=== PATIENT | female | born 1955 | race Caucasian/White ===

== ENCOUNTER 2018-08-12 16:20 | Inpatient (IN) | payer OTHER ==
--- NOTE | 2018-08-12 16:41 | Emergency Department Report ---
Chief Complaint: Abdominal Pain Stated Complaint: HYPERTENSION/ABD PAIN Time Seen by Provider: 08/12/18 16:37 - HPI History of Present Illness: This is a 63 y.o. female that presents with abdominal pain and high blood pressure. Symptoms started yesterday. PMH: DM & HTN Vomiting, diffuse abdominal pain - Exam Vital Signs: Vital Signs 08/12/18 16:37 Temperature 98.2 F Pulse Rate 101 H Respiratory 20 Rate Blood Pressure 149/82 O2 Sat by Pulse 97 Oximetry MSE screening note: Focused history and physical exam performed. Due to findings the following was ordered: Labs and CT of abdomen ED Disposition for MSE Condition: Stable Instructions: Abdominal Pain (ED)
[2018-08-12 17:22] LABS: Basophils # (Auto) 0.1 K/mm3 (0.0-0.1); Basophils % (Auto) 0.8 % (0.0-1.8); Hematocrit 38.9 % (30.3-42.9); Hemoglobin 12.5 gm/dl (10.1-14.3); Lymphocytes % (Auto) 8.8 % (13.4-35.0); Mean Corpuscular HGB Conc 32 % (30-34); Mean Corpuscular Volume 78 fl (79-97); Monocytes # (Auto) 0.4 K/mm3 (0.0-0.8); Monocytes % (Auto) 3.6 % (0.0-7.3); Platelet Count 399 K/mm3 (140-440); Red Blood Count 5.01 M/mm3 (3.65-5.03); Red Cell Distribution Width 16.4 % (13.2-15.2)
[2018-08-12 17:51] LABS: Albumin 4.8 g/dL (3.9-5); Calcium 9.9 mg/dL (8.4-10.2)
[2018-08-12 17:59] LABS: Bilirubin,Urine NEG (Negative); Blood,Urine SM (Negative); Color,Urine Straw (Yellow); Mucus,Urine FEW /HPF; Urobilinogen,Urine < 2.0 mg/dL (<2.0)
[2018-08-12] MEDS ORDERED: SUBLIMAZE IV ONE (20:13)
[2018-08-12] MEDS ORDERED: NACL 0.9% 1000 ML 1,000 ML IV ONE (20:13)
[2018-08-12] MEDS ORDERED: ZOFRAN IV ONE (20:13)
--- NOTE | 2018-08-12 20:19 | Emergency Department Report ---
HPI - General Chief Complaint: Abdominal Pain Time Seen by Provider: 08/12/18 16:37 - HPI HPI: Room 34 The patient 63-year-old female presenting with a chief complaint of abdominal pain. Patient states she's had intermittent diffuse abdominal pain since yesterday. Patient unable to eat and has had frequent nausea vomiting. Patient is able to pass flatus small amount of liquid stool. Patient denies history of fever. Patient gives her pain score of 5/10. Patient has had a history of small bowel instruction in the past. Patient had a CT scan performed as an outpatient this afternoon which was read as "findings consistent with high-grade small bowel obstruction at the junction between the proximal third to the middle third with dilated proximal segment with a distended stomach. Asymmetrically enlarged left adrenal gland probably hyperplasia. The pancreas. Normal gallbladder. Benign cyst in the lower pole of right kidney. Fibroid chanda cification of the fundus of the uterus." Images were not sent with the patient. Location: Abdomen Duration: Constant since yesterday Quality: Pain Severity: 5/10 Modifying factors: [see above] Context: [see above] Mode of transportation: [not driving] ED Past Medical Hx - Past Medical History Hx Hypertension: Yes Hx Diabetes: Yes - Surgical History Past Surgical History?: No Additional Surgical History: 1995 and 2000 had resection for bowel obstruction? - Family History Family history: no significant - Social History Smoking Status: Never Smoker Substance Use Type: None - Medications Home Medications: Home Medications Medication Instructions Recorded Confirmed Last Taken Type AtorvaSTATin 10 mg PO QHS 08/30/17 08/30/17 Unknown History Cyanocobalamin (Vitamin B-12) 1,000 mcg PO DAILY 08/30/17 08/30/17 08/29/17 History [Vitamin B12] Glimepiride [Amaryl] 4 mg PO BID 08/30/17 08/30/17 08/29/17 History Linagliptin [Tradjenta] 5 mg PO DAILY 08/30/17 08/30/17 08/29/17 History Losartan 100 mg PO DAILY 08/30/17 08/30/17 1 Day Ago History ~08/29/17 metFORMIN [Glucophage] 1,000 mg PO BID 08/30/17 08/30/17 08/29/17 History ED Review of Systems ROS: Stated complaint: HYPERTENSION/ABD PAIN Other details as noted in HPI Constitutional: denies: fever Eyes: denies: eye pain ENT: denies: throat pain Respiratory: no symptoms reported Cardiovascular: denies: chest pain Endocrine: no symptoms reported Gastrointestinal: abdominal pain, nausea, vomiting Genitourinary: denies: dysuria Musculoskeletal: denies: back pain Neurological: denies: headache Physical Exam - Physical Exam Vital Signs: Vital Signs 08/12/18 08/12/18 16:37 20:09 Temperature 98.2 F 98.2 F Pulse Rate 101 H 90 Respiratory 20 16 Rate Blood Pressure 149/82 Blood Pressure 134/71 [Left] O2 Sat by Pulse 97 98 Oximetry Physical Exam: GENERAL: The patient is well-developed well-nourished female lying on stretcher not appear to be in acute distress. [] HEENT: Normocephalic. Atraumatic. Extraocular motions are intact. Patient has moist mucous membranes. NECK: Supple. Trachea midline CHEST/LUNGS: Clear to auscultation. There is no respiratory distress noted. HEART/CARDIOVASCULAR: Regular. There is no tachycardia. There is no gallop rub or murmur. ABDOMEN: Abdomen is soft, with tenderness to palpation diffusely but greatest on the left lower and left upper quadrant. Patient has normal bowel sounds. There is no abdominal distention. SKIN: There is no rash. There is no edema. There is no diaphoresis. NEURO: The patient is awake, alert, and oriented. The patient is cooperative. The patient has normal speech MUSCULOSKELETAL: There is no evidence of acute injury. ED Course Vital Signs 08/12/18 08/12/18 16:37 20:09 Temperature 98.2 F 98.2 F Pulse Rate 101 H 90 Respiratory 20 16 Rate Blood Pressure 149/82 Blood Pressure 134/71 [Left] O2 Sat by Pulse 97 98 Oximetry - Consultations Consultation #1: 08/12/18 20:24 Surgery paged 08/12/18 20:[address] Patel-requests 2 view abdominal x-ray be performed in the morning. Will consult ED Medical Decision Making - Lab Data Result diagrams: 08/12/18 17:06 08/12/18 17:06 Laboratory Tests 08/12/18 08/12/18 08/12/18 17:06 17:06 17:20 WBC 11.4 H RBC 5.01 Hgb 12.5 Hct 38.9 MCV 78 L MCH 25 L MCHC 32 RDW 16.4 H Plt Count 399 Lymph % (Auto) 8.8 L [place] % (Auto) 3.6 Eos % (Auto) 0.0 Baso % (Auto) 0.8 Lymph # 1.0 L [place] # 0.4 Eos # 0.0 Baso # 0.1 Seg Neutrophils % 86.8 H Seg Neutrophils # 9.9 H Sodium 134 L Potassium 5.2 H Chloride 94.3 L Carbon Dioxide 23 Anion Gap 22 BUN 23 H Creatinine 1.3 H Estimated GFR 41 BUN/Creatinine Ratio 18 Glucose 220 H Calcium 9.9 Total Bilirubin 0.30 AST 14 ALT 13 Alkaline Phosphatase 97 Total Protein 8.0 Albumin 4.8 Albumin/Globulin Ratio 1.5 Lipase 180 H Urine Color Straw Urine Turbidity Clear Urine pH 5.0 Ur Specific [place] 1.050 H Urine Protein 100 mg/dl Urine Glucose (UA) >=500 Urine Ketones 20 Urine Blood Sm Urine Nitrite Neg Urine Bilirubin Neg Urine Urobilinogen < 2.0 Ur Leukocyte Esterase Neg Urine WBC (Auto) 1.0 Urine RBC (Auto) 5.0 U Epithel Cells (Auto) 2.0 Urine Mucus Few - Differential Diagnosis small bowel obstruction, pancreatitis Critical care attestation.: If time is entered above; I have spent that time in minutes in the direct care of this critically ill patient, excluding procedure time. ED Disposition Clinical Impression: Small bowel obstruction, Acute abdominal pain, Elevated lipase Disposition: OP ADMIT IP TO THIS HOSP Is pt being admited?: Yes Does the pt Need Aspirin: No Condition: Fair Instructions: Abdominal Pain (ED) Referrals: PATRICIA LUCERO MD [Primary Care Provider] - 3-5 Days Time of Disposition: 20:30 (hospitalist paged (Dr Mercado))
[2018-08-12] MEDS ORDERED: SODIUM CHLORIDE FLUSH SYRINGE 10 ML IV PRN (22:30)
[2018-08-12] MEDS ORDERED: ZOFRAN IV PRN (22:30)
[2018-08-12] MEDS ORDERED: TYLENOL PO PRN (22:30)
[2018-08-12] MEDS ORDERED: D50W (25GM) Syringe IV PRN (22:35)
--- NOTE | 2018-08-12 23:08 | History and Physical Report ---
History of Present Illness Date of examination: 08/12/18 Date of admission: 08/12/18 22:30 Chief complaint: Nausea with vomiting History of present illness: Patient is a 63 year old female with history of small bowel obstruction who presented to the ED on account of nausea with vomiting of 2 days duration times multiple episodes. She has associated generalized abdominal pain, diarrhea and subjective fever without chills. No dysuria or frequency. She denies chest pain, shortness of breath, palpitation, cough, sore throat, runny nose or congestion, leg swelling, orthopnea or PND. No headaches, lightheadedness, syncope or loss of consciousness. Patient had a CT scan of the abdomen/pelvis performed as an outpatient this afternoon which was read as findings consistent with high-grade small bowel obstruction at the junction between the proximal third to the middle third with dilated proximal segment with a distended stomach and asymmetrically enlarged left adrenal gland probably hyperplasia. The pancreas and gallbladder were normal with benign cyst in the lower pole of right kidney and fibroid calcification of the fundus of the uterus. Of note, patient did not come with the disk. Past History Past Medical History: diabetes, hypertension, hyperlipidemia, other (SBO) Past Surgical History: bowel surgery, Other (stone removal) Social history: no significant social history (she denies tobacco, alcohol or illicit drug use) Family history: other (reviewed and noncontributory) Medications and Allergies Allergies Allergy/AdvReac Type Severity Reaction Status Date / Time No Known Allergies Allergy Verified 08/12/18 16:23 Home Medications Medication Instructions Recorded Confirmed Last Taken Type AtorvaSTATin 10 mg PO QHS 08/30/17 08/30/17 Unknown History Cyanocobalamin (Vitamin B-12) 1,000 mcg PO DAILY 08/30/17 08/30/17 08/29/17 History [Vitamin B12] Glimepiride [Amaryl] 4 mg PO BID 08/30/17 08/30/17 08/29/17 History Linagliptin [Tradjenta] 5 mg PO DAILY 08/30/17 08/30/17 08/29/17 History Losartan 100 mg PO DAILY 08/30/17 08/30/17 1 Day Ago History ~08/29/17 metFORMIN [Glucophage] 1,000 mg PO BID 08/30/17 08/30/17 08/29/17 History Active Meds: Active Medications Acetaminophen (Tylenol) 650 mg PO Q4H PRN PRN Reason: Pain MILD(1-3)/Fever >100.5/GUPTA Dextrose (D50w (25gm) Syringe) 50 ml IV PRN PRN PRN Reason: Hypoglycemia Enoxaparin Sodium (Lovenox) 40 mg SUB-Q QDAY NNAMDI Famotidine (Pepcid) 10 mg IV BID [facility] Sodium Chloride (Nacl 0.9% 1000 Ml) 1,000 mls @ 125 mls/hr IV DIRECT NNAMDI Insulin Human Lispro (Humalog) 0 unit SUB-Q ACHS NNAMDI; Protocol Morphine Sulfate (Morphine) 2 mg IV Q4H PRN PRN Reason: Pain, Moderate (4-6) Ondansetron HCl (Zofran) 4 mg IV Q8H PRN PRN Reason: Nausea And Vomiting Sodium Chloride (Sodium Chloride Flush Syringe 10 Ml) 10 ml IV BID [facility] Sodium Chloride (Sodium Chloride Flush Syringe 10 Ml) 10 ml IV PRN PRN PRN Reason: LINE FLUSH Review of Systems All systems: negative (Except as documented in the HPI, all other systems were reviewed and negative) Exam - Constitutional Vitals: Temp Pulse Resp BP Pulse Ox 98.2 F 90 16 134/71 98 08/12/18 20:09 08/12/18 20:09 08/12/18 20:09 08/12/18 20:09 08/12/18 20:09 General appearance: Present: no acute distress, well-nourished - EENT Eyes: Present: PERRL, EOM intact ENT: hearing intact, clear oral mucosa, other (NG tube in place) - Neck Neck: Present: supple, normal ROM - Respiratory Respiratory effort: normal Respiratory: bilateral: CTA - Cardiovascular Rhythm: regular Heart Sounds: Present: S1 & S2. Absent: rub, click - Extremities Extremities: No edema Peripheral Pulses: within normal limits - Abdominal General gastrointestinal: Present: soft, tender (mild generalized tenderness), distended (mildly), absent bowel sounds Female genitourinary: Present: deferred - Integumentary Integumentary: Present: clear, warm, dry - Musculoskeletal Musculoskeletal: gait normal, strength equal bilaterally - Psychiatric Psychiatric: appropriate mood/affect, intact judgment & insight - Neurologic Neurologic: CNII-XII intact, moves all extremities Results - Labs CBC & Chem 7: 08/12/18 17:06 08/12/18 17:06 Labs: Laboratory Last Values WBC 11.4 K/mm3 (4.5-11.0) H 08/12/18 17:06 RBC 5.01 M/mm3 (3.65-5.03) 08/12/18 17:06 Hgb 12.5 gm/dl (10.1-14.3) 08/12/18 17:06 Hct 38.9 % (30.3-42.9) 08/12/18 17:06 MCV 78 fl (79-97) L 08/12/18 17:06 MCH 25 pg (28-32) L 08/12/18 17:06 MCHC 32 % (30-34) 08/12/18 17:06 RDW 16.4 % (13.2-15.2) H 08/12/18 17:06 Plt Count 399 K/mm3 (140-440) 08/12/18 17:06 Lymph % (Auto) 8.8 % (13.4-35.0) L 08/12/18 17:06 [place] % (Auto) 3.6 % (0.0-7.3) 08/12/18 17:06 Eos % (Auto) 0.0 % (0.0-4.3) 08/12/18 17:06 Baso % (Auto) 0.8 % (0.0-1.8) 08/12/18 17:06 Lymph # 1.0 K/mm3 (1.2-5.4) L 08/12/18 17:06 [place] # 0.4 K/mm3 (0.0-0.8) 08/12/18 17:06 Eos # 0.0 K/mm3 (0.0-0.4) 08/12/18 17:06 Baso # 0.1 K/mm3 (0.0-0.1) 08/12/18 17:06 Seg Neutrophils % 86.8 % (40.0-70.0) H 08/12/18 17:06 Seg Neutrophils # 9.9 K/mm3 (1.8-7.7) H 08/12/18 17:06 Sodium 134 mmol/L (137-145) L 08/12/18 17:06 Potassium 5.2 mmol/L (3.6-5.0) H 08/12/18 17:06 Chloride 94.3 mmol/L (98-107) L 08/12/18 17:06 Carbon Dioxide 23 mmol/L (22-30) 08/12/18 17:06 Anion Gap 22 mmol/L 08/12/18 17:06 BUN 23 mg/dL (7-17) H 08/12/18 17:06 Creatinine 1.3 mg/dL (0.7-1.2) H 08/12/18 17:06 Estimated GFR 41 ml/min 08/12/18 17:06 BUN/Creatinine Ratio 18 % 08/12/18 17:06 Glucose 220 mg/dL (65-100) H 08/12/18 17:06 Calcium 9.9 mg/dL (8.4-10.2) 08/12/18 17:06 Total Bilirubin 0.30 mg/dL (0.1-1.2) 08/12/18 17:06 AST 14 units/L (5-40) 08/12/18 17:06 ALT 13 units/L (7-56) 08/12/18 17:06 Alkaline Phosphatase 97 units/L (35-129) 08/12/18 17:06 Total Protein 8.0 g/dL (6.3-8.2) 08/12/18 17:06 Albumin 4.8 g/dL (3.9-5) 08/12/18 17:06 Albumin/Globulin Ratio 1.5 % 08/12/18 17:06 Lipase 180 units/L (13-60) H 08/12/18 17:06 Urine Color Straw (Yellow) 08/12/18 17:20 Urine Turbidity Clear (Clear) 08/12/18 17:20 Urine pH 5.0 (5.0-7.0) 08/12/18 17:20 Ur Specific [place] 1.050 (1.003-1.030) H 08/12/18 17:20 Urine Protein 100 mg/dl mg/dL (Negative) 08/12/18 17:20 Urine Glucose (UA) >=500 mg/dL (Negative) 08/12/18 17:20 Urine Ketones 20 mg/dL (Negative) 08/12/18 17:20 Urine Blood Sm (Negative) 08/12/18 17:20 Urine Nitrite Neg (Negative) 08/12/18 17:20 Urine Bilirubin Neg (Negative) 08/12/18 17:20 Urine Urobilinogen < 2.0 mg/dL (<2.0) 08/12/18 17:20 Ur Leukocyte Esterase Neg (Negative) 08/12/18 17:20 Urine WBC (Auto) 1.0 /HPF (0.0-6.0) 08/12/18 17:20 Urine RBC (Auto) 5.0 /HPF (0.0-6.0) 08/12/18 17:20 U Epithel Cells (Auto) 2.0 /HPF (0-13.0) 08/12/18 17:20 Urine Mucus Few /HPF 08/12/18 17:20 Assessment and Plan Assessment and plan: SBO -NG tube in place for bowel decompression -Surgery consulted in the ED -Abdominal series in a.m. TRACIE, probably prerenal azotemia -IV fluid, will monitor creatinine level Mild hyperkalemia -On IV fluid, will monitor potassium level DM2 with hyperglycemia -On SSI and IV fluid Leukocytosis -Probably reactive, will monitor WBC level Elevated lipase -Likely due to the SBO -No evidence of acute pancreatitis per imaging HTN -Controlled DVT prophylaxis with Lovenox Disposition: For discharge when medically stable Time spent: 38 minutes
--- NOTE | 2018-08-12 23:18 | XRay Report ---
PROCEDURE: XR ABDOMEN 1V AP TECHNIQUE: Abdominal radiograph, single view. HISTORY: NG tube placement COMPARISONS: None . FINDINGS: Bowel gas pattern: Nonobstructive . Masses or calcifications: None . Bony structures: No significant abnormality . Other: The nasogastric tube ends in the distal stomach . IMPRESSION: The nasogastric tube ends in the distal stomach. This document is electronically signed by Marleny Ramos DO., August 12 2018 11:17:19 PM ET
[2018-08-13] MEDS: NACL 0.9% 1000 ML 1,000 ML IV SCH ×4 (00:13→23:49)
[2018-08-13 04:44] LABS: Basophils % (Auto) 0.3 % (0.0-1.8); Eosinophils % (Auto) 0.3 % (0.0-4.3); Hematocrit 33.2 % (30.3-42.9); Lymphocytes # (Auto) 1.3 K/mm3 (1.2-5.4); Lymphocytes % (Auto) 16.4 % (13.4-35.0); Mean Corpuscular HGB Conc 33 % (30-34); Mean Corpuscular Volume 77 fl (79-97); Monocytes # (Auto) 0.7 K/mm3 (0.0-0.8); Monocytes % (Auto) 8.6 % (0.0-7.3); Platelet Count 330 K/mm3 (140-440); Red Blood Count 4.32 M/mm3 (3.65-5.03); Red Cell Distribution Width 16.5 % (13.2-15.2)
[2018-08-13 05:04] LABS: BUN/Creatinine Ratio 24; Blood Urea Nitrogen 22 mg/dL (7-17); Calcium 8.5 mg/dL (8.4-10.2); Hemolysis Index 7
[2018-08-13] MEDS: HumaLOG SUB-Q SCH ×4 (07:00→22:27)
[2018-08-13] MEDS: SODIUM CHLORIDE FLUSH SYRINGE 10 ML IV SCH ×2 (09:19→22:25)
[2018-08-13] MEDS: PEPCID IV SCH ×2 (09:19→22:22)
[2018-08-13] MEDS: LOVENOX SUB-Q SCH (09:19)
--- NOTE | 2018-08-13 14:25 | Consultation ---
History of Present Illness Consult date: 08/13/18 Reason for consult: abdominal pain Requesting physician: SOLO RAMIREZ Chief complaint: abdominal pain - History of present illness History of present illness: 63yo F with a two day history of abdominal pain, N/V. surgical history is significant for 2 laparotomies. She reports the 1st one in 1989 was for intestine that had gone bad. The 2nd one was for a blockage. She is feeling better now. She has minimal pain on the left side. Nothing on the right. She is passed gas. No bowel movement yet. She is wanting something to eat or drink. Past History Past Medical History: diabetes, hypertension, hyperlipidemia, other (SBO) Past Surgical History: bowel surgery (2 laparotomies. ), Other (stone removal) Social history: no significant social history (she denies tobacco, alcohol or illicit drug use) Family history: other (reviewed and noncontributory) Medications and Allergies Allergies Allergy/AdvReac Type Severity Reaction Status Date / Time No Known Allergies Allergy Verified 08/12/18 16:23 Home Medications Medication Instructions Recorded Confirmed Last Taken Type AtorvaSTATin 10 mg PO QHS 08/30/17 08/13/18 08/11/18 History Cyanocobalamin (Vitamin B-12) 1,000 mcg PO DAILY 08/30/17 08/13/18 08/29/17 History [Vitamin B12] Glimepiride [Amaryl] 4 mg PO BID 08/30/17 08/13/18 08/11/18 History Linagliptin [Tradjenta] 5 mg PO DAILY 08/30/17 08/13/18 08/12/18 History Losartan 100 mg PO DAILY 08/30/17 08/13/18 08/11/18 History metFORMIN [Glucophage] 1,000 mg PO BID 08/30/17 08/13/18 08/11/18 History Active Meds: Active Medications Acetaminophen (Tylenol) 650 mg PO Q4H PRN PRN Reason: Pain MILD(1-3)/Fever >100.5/GUPTA Dextrose (D50w (25gm) Syringe) 50 ml IV PRN PRN PRN Reason: Hypoglycemia Enoxaparin Sodium (Lovenox) 40 mg SUB-Q QDAY NNAMDI Last Admin: 08/13/18 09:19 Dose: 40 mg Documented by: Famotidine (Pepcid) 10 mg IV BID [facility] Last Admin: 08/13/18 09:19 Dose: 10 mg Documented by: Sodium Chloride (Nacl 0.9% 1000 Ml) 1,000 mls @ 125 mls/hr IV DIRECT [facility] Last Admin: 08/13/18 08:03 Dose: 125 mls/hr Documented by: Insulin Human Lispro (Humalog) 0 unit SUB-Q ACHS [facility]; Protocol Last Admin: 08/13/18 11:59 Dose: Not Given Documented by: Morphine Sulfate (Morphine) 2 mg IV Q4H PRN PRN Reason: Pain, Moderate (4-6) Ondansetron HCl (Zofran) 4 mg IV Q8H PRN PRN Reason: Nausea And Vomiting Sodium Chloride (Sodium Chloride Flush Syringe 10 Ml) 10 ml IV BID [facility] Last Admin: 08/13/18 09:19 Dose: 10 ml Documented by: Sodium Chloride (Sodium Chloride Flush Syringe 10 Ml) 10 ml IV PRN PRN PRN Reason: LINE FLUSH Review of Systems - Constitutional no fever, no chills, no chronic pain - Cardiovascular no chest pain, no shortness of breath - Respiratory no cough - Gastrointestinal abdominal pain, nausea, vomiting, change in bowel habits, no diarrhea, no constipation, no hematemesis, no coffee ground emesis, no BRBPR, no melena, no hematochezia - Genitourinary Genitourinary: no dysuria - Muskuloskeletal no low back pain - Integumentary no rash, no pruritis, no redness, no wounds Exam Vital Signs Temp Pulse Resp BP Pulse Ox 98.2 F 101 H 20 149/82 97 08/12/18 16:37 08/12/18 16:37 08/12/18 16:37 08/12/18 16:37 08/12/18 16:37 - General physical appearance Positive: no distress, no pain, other (looks well). Negative: cathetic, chronically ill - Eyes Positive: normal occular movement - ENT Positive: other (NGT - fluid in tubing is thin, and slightly green) - Respiratory Positive: normal expansion, normal respiratory effort, clear to auscultation - Cardiovascular Rhythm: regular - Abdomen Abdomen: Present: soft, tender (minimal on the left side), bowel sounds hypoactive (nothing), distended (minimal), surgical scars (well healed lower midline scars). Absent: guarding, rigid - Integumentary no rash, no growths, no abnormal pigmentation - Neurologic Neurologic: alert and oriented to time, place and person, motor strength and sensation are grossly intact - Psychiatric Psychiatric: appropriate mood/affect, intact judgment & insight Results - Labs 08/13/18 04:14 08/13/18 04:14 Abnormal lab results 08/12/18 08/12/18 08/12/18 Range/Units 17:06 17:06 17:20 WBC 11.4 H (4.5-11.0) K/mm3 MCV 78 L (79-97) fl MCH 25 L (28-32) pg RDW 16.4 H (13.2-15.2) % Lymph % (Auto) 8.8 L (13.4-35.0) % [place] % (Auto) (0.0-7.3) % Lymph # 1.0 L (1.2-5.4) K/mm3 Seg Neutrophils % 86.8 H (40.0-70.0) % Seg Neutrophils # 9.9 H (1.8-7.7) K/mm3 Sodium 134 L (137-145) mmol/L Potassium 5.2 H (3.6-5.0) mmol/L Chloride 94.3 L (98-107) mmol/L BUN 23 H (7-17) mg/dL Creatinine 1.3 H (0.7-1.2) mg/dL Glucose 220 H (65-100) mg/dL POC Glucose (70-105) Lipase 180 H (13-60) units/L Ur Specific [place] 1.050 H (1.003-1.030) 08/13/18 08/13/18 08/13/18 Range/Units 00:09 04:14 04:14 WBC (4.5-11.0) K/mm3 MCV 77 L (79-97) fl MCH 26 L (28-32) pg RDW 16.5 H (13.2-15.2) % Lymph % (Auto) (13.4-35.0) % [place] % (Auto) 8.6 H (0.0-7.3) % Lymph # (1.2-5.4) K/mm3 Seg Neutrophils % 74.4 H (40.0-70.0) % Seg Neutrophils # (1.8-7.7) K/mm3 Sodium (137-145) mmol/L Potassium (3.6-5.0) mmol/L Chloride (98-107) mmol/L BUN 22 H (7-17) mg/dL Creatinine (0.7-1.2) mg/dL Glucose 154 H (65-100) mg/dL POC Glucose 154 H (70-105) Lipase (13-60) units/L Ur Specific [place] (1.003-1.030) 08/13/18 Range/Units 05:58 WBC (4.5-11.0) K/mm3 MCV (79-97) fl MCH (28-32) pg RDW (13.2-15.2) % Lymph % (Auto) (13.4-35.0) % [place] % (Auto) (0.0-7.3) % Lymph # (1.2-5.4) K/mm3 Seg Neutrophils % (40.0-70.0) % Seg Neutrophils # (1.8-7.7) K/mm3 Sodium (137-145) mmol/L Potassium (3.6-5.0) mmol/L Chloride (98-107) mmol/L BUN (7-17) mg/dL Creatinine (0.7-1.2) mg/dL Glucose (65-100) mg/dL POC Glucose 161 H (70-105) Lipase (13-60) units/L Ur Specific [place] (1.003-1.030) Diabetes panel 08/12/18 08/13/18 Range/Units 17:06 04:14 Sodium 134 L 137 (137-145) mmol/L Potassium 5.2 H 4.1 D (3.6-5.0) mmol/L Chloride 94.3 L 100.6 (98-107) mmol/L Carbon Dioxide 23 24 (22-30) mmol/L BUN 23 H 22 H (7-17) mg/dL Creatinine 1.3 H 0.9 (0.7-1.2) mg/dL Glucose 220 H 154 H (65-100) mg/dL Calcium 9.9 8.5 (8.4-10.2) mg/dL AST 14 (5-40) units/L ALT 13 (7-56) units/L Alkaline Phosphatase 97 (35-129) units/L Total Protein 8.0 (6.3-8.2) g/dL Albumin 4.8 (3.9-5) g/dL Calcium panel 08/12/18 08/13/18 Range/Units 17:06 04:14 Calcium 9.9 8.5 (8.4-10.2) mg/dL Albumin 4.8 (3.9-5) g/dL Pituitary panel 08/12/18 08/13/18 Range/Units 17:06 04:14 Sodium 134 L 137 (137-145) mmol/L Potassium 5.2 H 4.1 D (3.6-5.0) mmol/L Chloride 94.3 L 100.6 (98-107) mmol/L Carbon Dioxide 23 24 (22-30) mmol/L BUN 23 H 22 H (7-17) mg/dL Creatinine 1.3 H 0.9 (0.7-1.2) mg/dL Glucose 220 H 154 H (65-100) mg/dL Calcium 9.9 8.5 (8.4-10.2) mg/dL Adrenal panel 08/12/18 08/13/18 Range/Units 17:06 04:14 Sodium 134 L 137 (137-145) mmol/L Potassium 5.2 H 4.1 D (3.6-5.0) mmol/L Chloride 94.3 L 100.6 (98-107) mmol/L Carbon Dioxide 23 24 (22-30) mmol/L BUN 23 H 22 H (7-17) mg/dL Creatinine 1.3 H 0.9 (0.7-1.2) mg/dL Glucose 220 H 154 H (65-100) mg/dL Calcium 9.9 8.5 (8.4-10.2) mg/dL Total Bilirubin 0.30 (0.1-1.2) mg/dL AST 14 (5-40) units/L ALT 13 (7-56) units/L Alkaline Phosphatase 97 (35-129) units/L Total Protein 8.0 (6.3-8.2) g/dL Albumin 4.8 (3.9-5) g/dL - Imaging Abdominal x-ray: report reviewed, image reviewed CT scan - abdomen: report reviewed, image reviewed CT scan - pelvis: report reviewed, image reviewed Assessment and Plan - Patient Problems (1) Small bowel obstruction Current Visit: Yes Status: Acute Plan to address problem: Pt stable. Clinically it looks as though she may have already started to resolve this process. I recommended that we keep the NGT one more day. I will reassess tomorrow. If she is continuing to pass gas and hopefully have a bowel movement, then I will begin a diet. I have encouraged her to walk. Continue with resuscitation. I will follow along. Please call with any questions. Time=30min
--- NOTE | 2018-08-13 14:45 | Progress Note ---
Assessment and Plan Patient is a 63 year old female with history of small bowel obstruction who presented to the ED on account of nausea with vomiting of 2 days duration times multiple episodes. She has associated generalized abdominal pain, diarrhea and subjective fever without chills. No dysuria or frequency. She denies chest pain, shortness of breath, palpitation, cough, sore throat, runny nose or congestion, leg swelling, orthopnea or PND. No headaches, lightheadedness, syncope or loss of consciousness. Patient had a CT scan of the abdomen/pelvis performed as an outpatient this afternoon which was read as findings consistent with high-grade small bowel obstruction at the junction between the proximal third to the middle third with dilated proximal segment with a distended stomach and asymmetrically enlarged left adrenal gland probably hyperplasia. The pancreas and gallbladder were normal with benign cyst in the lower pole of right kidney and fibroid calcification of the fundus of the uterus. SBO -NG tube in place for bowel decompression -Surgery consulted in the ED -Abdominal series in a.m. TRACIE, prerenal azotemia - resolved -IV fluid, will monitor creatinine level Mild hyperkalemia - resolved -On IV fluid, will monitor potassium level DM2 with hyperglycemia -On SSI and IV fluid Leukocytosis -Probably reactive, will monitor WBC level Elevated lipase -Likely due to the SBO -No evidence of acute pancreatitis per imaging HTN -Controlled DVT prophylaxis with Lovenox Disposition: For discharge when medically stable Time spent: 38 minutes Subjective Date of service: 08/13/18 Principal diagnosis: small bowel obstruction from adhesions, UTI, T2DM Interval history: Patient's on NG tube seen and examined. Said she has pass some fltuas but no bowel movement yet. Objective - Exam Narrative Exam: Constitutional: NG tube in place Well-nourished well-developed. In no distress Head: Normocephalic atraumatic Eyes: Pupils are equal round and reactive to light Nose: No enlarged turbinates, no septal deviation. Mouth: Moist mucous membranes. Neck: Supple no thyromegaly. No bruit. No JVD Heart: Regular rate and rhythm, S1-S2 normal. No rubs murmurs or gallop Lungs: Clear to auscultation bilaterally. no rales or rhonchi Abdomen: Soft, nontender. Bowel sound are present. Extremities: No edema, no cyanosis, no clubbing. Neuro: Alert oriented Oriented x3. No focal sensory or motor deficit. Skin: No rashes or hyperpigmented spots Musculoskeletal system: No joint pain or swelling Hematological: No petechia or subcutanous hemorrhages. Immunological: No multiple septic spots on the skin Lymphatic: No generalized lymphadenopathy Psychiatry: Euthymic. Calm. - Constitutional Vitals: Vital Signs - 12hr 08/13/18 08/13/18 08/13/18 04:05 07:10 11:57 Temperature 98.4 F 98.8 F 98.4 F Pulse Rate 86 72 76 Respiratory 17 18 18 Rate Blood Pressure 131/66 Blood Pressure 138/69 130/68 [Left] O2 Sat by Pulse 98 96 97 Oximetry - Labs CBC & Chem 7: 08/13/18 04:14 08/13/18 04:14 Labs: Abnormal lab results 08/12/18 08/12/18 08/12/18 Range/Units 17:06 17:06 17:20 WBC 11.4 H (4.5-11.0) K/mm3 MCV 78 L (79-97) fl MCH 25 L (28-32) pg RDW 16.4 H (13.2-15.2) % Lymph % (Auto) 8.8 L (13.4-35.0) % [place] % (Auto) (0.0-7.3) % Lymph # 1.0 L (1.2-5.4) K/mm3 Seg Neutrophils % 86.8 H (40.0-70.0) % Seg Neutrophils # 9.9 H (1.8-7.7) K/mm3 Sodium 134 L (137-145) mmol/L Potassium 5.2 H (3.6-5.0) mmol/L Chloride 94.3 L (98-107) mmol/L BUN 23 H (7-17) mg/dL Creatinine 1.3 H (0.7-1.2) mg/dL Glucose 220 H (65-100) mg/dL POC Glucose (70-105) Lipase 180 H (13-60) units/L Ur Specific [place] 1.050 H (1.003-1.030) 08/13/18 08/13/18 08/13/18 Range/Units 00:09 04:14 04:14 WBC (4.5-11.0) K/mm3 MCV 77 L (79-97) fl MCH 26 L (28-32) pg RDW 16.5 H (13.2-15.2) % Lymph % (Auto) (13.4-35.0) % [place] % (Auto) 8.6 H (0.0-7.3) % Lymph # (1.2-5.4) K/mm3 Seg Neutrophils % 74.4 H (40.0-70.0) % Seg Neutrophils # (1.8-7.7) K/mm3 Sodium (137-145) mmol/L Potassium (3.6-5.0) mmol/L Chloride (98-107) mmol/L BUN 22 H (7-17) mg/dL Creatinine (0.7-1.2) mg/dL Glucose 154 H (65-100) mg/dL POC Glucose 154 H (70-105) Lipase (13-60) units/L Ur Specific [place] (1.003-1.030) 08/13/18 Range/Units 05:58 WBC (4.5-11.0) K/mm3 MCV (79-97) fl MCH (28-32) pg RDW (13.2-15.2) % Lymph % (Auto) (13.4-35.0) % [place] % (Auto) (0.0-7.3) % Lymph # (1.2-5.4) K/mm3 Seg Neutrophils % (40.0-70.0) % Seg Neutrophils # (1.8-7.7) K/mm3 Sodium (137-145) mmol/L Potassium (3.6-5.0) mmol/L Chloride (98-107) mmol/L BUN (7-17) mg/dL Creatinine (0.7-1.2) mg/dL Glucose (65-100) mg/dL POC Glucose 161 H (70-105) Lipase (13-60) units/L Ur Specific [place] (1.003-1.030)
[2018-08-13] MEDS: MORPHINE IV PRN ×2 (15:48→22:23)
--- NOTE | 2018-08-13 16:47 | XRay Report ---
XR ABDOMEN 2V CLINICAL INDICATION: Female, 63 years of age. small bowel obstruction COMPARISON: August 12, 2018. FINDINGS: AP views of the abdomen obtained. Distal tip of NG tube projects over the distal stomach si milar to prior study. Persistent retained barium within the colon. Paucity of small bowel gas which c ould reflect fluid-filled decompressed bowel loops. No significant change from prior study. No gross pathological calcifications. IMPRESSION: 1. Distal to the NG tube projects over the distal stomach. 2. Nonspecific bowel gas pattern. This document is electronically signed by Ronel Lee DO., August 13 2018 04:45:13 PM ET
[2018-08-14] MEDS: HumaLOG SUB-Q SCH ×4 (07:00→22:42)
[2018-08-14] MEDS: SODIUM CHLORIDE FLUSH SYRINGE 10 ML IV SCH ×2 (10:39→22:30)
[2018-08-14] MEDS: LOVENOX SUB-Q SCH (10:40)
[2018-08-14] MEDS: PEPCID IV SCH ×2 (10:41→22:30)
--- NOTE | 2018-08-14 12:01 | Progress Note ---
Assessment and Plan - Patient Problems (1) Small bowel obstruction Current Visit: Yes Status: Acute Plan to address problem: Pt stable. Patient looks and feels better. Abdomen is benign. Will clamp NG tube and try clear liquids. If tolerated, will advance diet tomorrow and remove NG tube. Will check abdominal x-ray in the morning to reassess the bowel pattern. I will follow along. Please call with any questions. Time=10min Subjective Date of service: 08/14/18 Patient Reports: Positive: feels better, pain is less, flatus, no bowel movement. Negative: nausea, vomiting Objective Vital Signs - 12hr 08/14/18 08/14/18 08/14/18 04:57 06:16 07:32 Temperature 97.8 F 98.1 F Pulse Rate 68 82 74 Respiratory 18 18 Rate Blood Pressure 117/72 137/63 [Left] O2 Sat by Pulse 87 98 99 Oximetry 08/14/18 11:35 Temperature 98.4 F Pulse Rate 82 Respiratory 18 Rate Blood Pressure 131/62 [Left] O2 Sat by Pulse 97 Oximetry - General physical appearance no distress, no pain - Eyes normal occular movement - Respiratory normal expansion, normal respiratory effort - Abdomen soft, not tender, bowel sounds hypoactive, not distended, not guarding, not rigid, other (NGT with clear output) - Integumentary no rash, no growths, no abnormal pigmentation - Psychiatric oriented to time, oriented to person, oriented to place, speech is normal, memory intact - Labs 08/13/18 04:14 08/13/18 04:14
[2018-08-14] MEDS: NACL 0.9% 1000 ML 1,000 ML IV SCH (17:21)
--- NOTE | 2018-08-14 17:34 | Progress Note ---
Assessment and Plan Patient is a 63 year old female with history of small bowel obstruction who presented to the ED on account of nausea with vomiting of 2 days duration times multiple episodes. She has associated generalized abdominal pain, diarrhea and subjective fever without chills. No dysuria or frequency. She denies chest pain, shortness of breath, palpitation, cough, sore throat, runny nose or congestion, leg swelling, orthopnea or PND. No headaches, lightheadedness, syncope or loss of consciousness. Patient had a CT scan of the abdomen/pelvis performed as an outpatient this afternoon which was read as findings consistent with high-grade small bowel obstruction at the junction between the proximal third to the middle third with dilated proximal segment with a distended stomach and asymmetrically enlarged left adrenal gland probably hyperplasia. The pancreas and gallbladder were normal with benign cyst in the lower pole of right kidney and fibroid calcification of the fundus of the uterus. SBO -NG tube in place for bowel decompression. Clamped today adn commenced on sip per surgeon TRACIE, prerenal azotemia - resolved -IV fluid, will monitor creatinine level Mild hyperkalemia - resolved -On IV fluid, will monitor potassium level DM2 with hyperglycemia -On SSI and IV fluid Leukocytosis - resolved -Probably reactive, will monitor WBC level Elevated lipase -Likely due to the SBO -No evidence of acute pancreatitis per imaging HTN -Controlled DVT prophylaxis with Lovenox Disposition: For discharge when medically stable Time spent: 35 minutes Subjective Date of service: 08/14/18 Principal diagnosis: small bowel obstruction from adhesions, UTI, T2DM Interval history: Patient's on NG tube seen and examined. Said she is still passing some flatus but no bowel movement yet. Objective - Exam Narrative Exam: Constitutional: NG tube in place. Well-nourished well-developed. In no distress Head: Normocephalic atraumatic Eyes: Pupils are equal round and reactive to light Nose: No enlarged turbinates, no septal deviation. Mouth: Moist mucous membranes. Neck: Supple no thyromegaly. No bruit. No JVD Heart: Regular rate and rhythm, S1-S2 normal. No rubs murmurs or gallop Lungs: Clear to auscultation bilaterally. no rales or rhonchi Abdomen: Soft, nontender. Bowel sound are present. Extremities: No edema, no cyanosis, no clubbing. Neuro: Alert oriented Oriented x3. No focal sensory or motor deficit. Skin: No rashes or hyperpigmented spots Musculoskeletal system: No joint pain or swelling Hematological: No petechia or subcutanous hemorrhages. Immunological: No multiple septic spots on the skin Lymphatic: No generalized lymphadenopathy Psychiatry: Euthymic. Calm. - Constitutional Vitals: Vital Signs - 12hr 08/14/18 08/14/18 08/14/18 06:16 07:32 11:35 Temperature 97.8 F 98.1 F 98.4 F Pulse Rate 82 74 82 Respiratory 18 18 18 Rate Blood Pressure 117/72 137/63 131/62 [Left] O2 Sat by Pulse 98 99 97 Oximetry 08/14/18 16:25 Temperature 98.2 F Pulse Rate 74 Respiratory 18 Rate Blood Pressure 147/75 [Left] O2 Sat by Pulse 98 Oximetry - Labs CBC & Chem 7: 08/13/18 04:14 08/13/18 04:14 Labs: Abnormal lab results 08/12/18 08/14/18 08/14/18 Range/Units 23:18 06:07 11:08 POC Glucose 170 H 68 L 66 L (70-105) 08/14/18 Range/Units 16:40 POC Glucose 148 H (70-105)
[2018-08-14] MEDS ORDERED: D50W (25GM) Syringe IV PRN (17:36)
[2018-08-14] MEDS ORDERED: D5NS0.3 1,000 ML IV SCH (18:00)
[2018-08-15] MEDS: HumaLOG SUB-Q SCH ×9 (04:36→22:27)
[2018-08-15 04:49] LABS: Basophils # (Auto) 0.1 K/mm3 (0.0-0.1); Basophils % (Auto) 0.8 % (0.0-1.8); Eosinophils # (Auto) 0.1 K/mm3 (0.0-0.4); Eosinophils % (Auto) 0.9 % (0.0-4.3); Hematocrit 31.4 % (30.3-42.9); Hemoglobin 10.2 gm/dl (10.1-14.3); Lymphocytes # (Auto) 1.2 K/mm3 (1.2-5.4); Lymphocytes % (Auto) 17.6 % (13.4-35.0); Mean Corpuscular HGB Conc 33 % (30-34); Mean Corpuscular Volume 78 fl (79-97); Monocytes # (Auto) 0.6 K/mm3 (0.0-0.8); Monocytes % (Auto) 8.4 % (0.0-7.3); Platelet Count 257 K/mm3 (140-440); Red Blood Count 4.03 M/mm3 (3.65-5.03); Red Cell Distribution Width 16.3 % (13.2-15.2)
[2018-08-15 05:06] LABS: Alanine Aminotransferase 8 units/L (7-56); Albumin 3.4 g/dL (3.9-5); BUN/Creatinine Ratio 13; Blood Urea Nitrogen 9 mg/dL (7-17); Calcium 8.4 mg/dL (8.4-10.2); Hemolysis Index 5
--- NOTE | 2018-08-15 08:16 | Progress Note ---
Assessment and Plan - Patient Problems (1) Small bowel obstruction Current Visit: Yes Status: Acute Plan to address problem: Pt stable. Patient looks and feels better. Abdomen is benign. minimal small bowel prominence on xray. Clinically she looks good. 1) Advance to full liquid diet. If she does well with lunch, she may be discharged home. Should stay on liquid diet for 1 week and then advance when she feels back to normal. I will follow along. Please call with any questions. Time=10min Subjective Date of service: 08/15/18 Patient Reports: Positive: feels better, tolerating liquids well, flatus, bowel movement. Negative: nausea, vomiting Objective Vital Signs - 12hr 08/14/18 08/15/18 08/15/18 23:35 04:29 06:55 Temperature 99.4 F 98.2 F 98.7 F Pulse Rate 77 69 Respiratory 17 17 20 Rate Blood Pressure 156/80 150/66 162/79 Blood Pressure [Right] O2 Sat by Pulse 98 98 Oximetry 08/15/18 07:31 Temperature 98.7 F Pulse Rate 68 Respiratory 20 Rate Blood Pressure Blood Pressure 162/79 [Right] O2 Sat by Pulse 100 Oximetry - General physical appearance no distress, no pain, other (looks well) - Respiratory normal expansion, normal respiratory effort - Abdomen soft, not tender, bowel sounds hypoactive, not distended, not guarding, not rigid - Integumentary no rash, no growths, no abnormal pigmentation - Psychiatric oriented to time, oriented to person, oriented to place, speech is normal, memory intact - Labs 08/15/18 04:09 08/15/18 04:09 Diabetes panel 08/15/18 Range/Units 04:09 Sodium 139 (137-145) mmol/L Potassium 4.2 (3.6-5.0) mmol/L Chloride 106.0 (98-107) mmol/L Carbon Dioxide 20 L (22-30) mmol/L BUN 9 (7-17) mg/dL Creatinine 0.7 (0.7-1.2) mg/dL Glucose 127 H (65-100) mg/dL Calcium 8.4 (8.4-10.2) mg/dL AST 11 (5-40) units/L ALT 8 (7-56) units/L Alkaline Phosphatase 67 (35-129) units/L Total Protein 5.8 L D (6.3-8.2) g/dL Albumin 3.4 L (3.9-5) g/dL Calcium panel 08/15/18 Range/Units 04:09 Calcium 8.4 (8.4-10.2) mg/dL Albumin 3.4 L (3.9-5) g/dL Pituitary panel 08/15/18 Range/Units 04:09 Sodium 139 (137-145) mmol/L Potassium 4.2 (3.6-5.0) mmol/L Chloride 106.0 (98-107) mmol/L Carbon Dioxide 20 L (22-30) mmol/L BUN 9 (7-17) mg/dL Creatinine 0.7 (0.7-1.2) mg/dL Glucose 127 H (65-100) mg/dL Calcium 8.4 (8.4-10.2) mg/dL Adrenal panel 08/15/18 Range/Units 04:09 Sodium 139 (137-145) mmol/L Potassium 4.2 (3.6-5.0) mmol/L Chloride 106.0 (98-107) mmol/L Carbon Dioxide 20 L (22-30) mmol/L BUN 9 (7-17) mg/dL Creatinine 0.7 (0.7-1.2) mg/dL Glucose 127 H (65-100) mg/dL Calcium 8.4 (8.4-10.2) mg/dL Total Bilirubin 0.40 (0.1-1.2) mg/dL AST 11 (5-40) units/L ALT 8 (7-56) units/L Alkaline Phosphatase 67 (35-129) units/L Total Protein 5.8 L D (6.3-8.2) g/dL Albumin 3.4 L (3.9-5) g/dL
[2018-08-15] MEDS: PEPCID IV SCH ×3 (08:28→21:40)
[2018-08-15] MEDS: LOVENOX SUB-Q SCH ×2 (08:28→10:00)
--- NOTE | 2018-08-15 09:28 | XRay Report ---
AP ABDOMEN: HISTORY: Followup bowel obstruction. Compared to 08/13/18. There is residual oral contrast in the left hemicolon. No evidence for dilated bowel loops on KUB. No pathologic calcifications. Nasogastric tube terminates in the mid stomach. IMPRESSION: Unremarkable abdomen.
[2018-08-15] MEDS: SODIUM CHLORIDE FLUSH SYRINGE 10 ML IV SCH ×2 (10:00→21:41)
--- NOTE | 2018-08-15 17:45 | Progress Note ---
Assessment and Plan Patient is a 63 year old female with history of small bowel obstruction who presented to the ED on account of nausea with vomiting of 2 days duration times multiple episodes. She has associated generalized abdominal pain, diarrhea and subjective fever without chills. No dysuria or frequency. She denies chest pain, shortness of breath, palpitation, cough, sore throat, runny nose or congestion, leg swelling, orthopnea or PND. No headaches, lightheadedness, syncope or loss of consciousness. Patient had a CT scan of the abdomen/pelvis performed as an outpatient this afternoon which was read as findings consistent with high-grade small bowel obstruction at the junction between the proximal third to the middle third with dilated proximal segment with a distended stomach and asymmetrically enlarged left adrenal gland probably hyperplasia. The pancreas and gallbladder were normal with benign cyst in the lower pole of right kidney and fibroid calcification of the fundus of the uterus. SBO -NG tube in place for bowel decompression. Clamped yesterday. on sips. To advance to fulll liquids TRACIE, prerenal azotemia - resolved -IV fluid, will monitor creatinine level Mild hyperkalemia - resolved -On IV fluid, will monitor potassium level T2DM with hyperglycemia -On SSI and IV fluid Leukocytosis - resolved -Probably reactive, will monitor WBC level Elevated lipase -Likely due to the SBO -No evidence of acute pancreatitis per imaging HTN -Controlled DVT prophylaxis with Lovenox Disposition: For discharge if tolerating full liquids per Surgeon Time spent: 30 minutes Subjective Date of service: 08/15/18 Principal diagnosis: small bowel obstruction from adhesions, UTI, T2DM Interval history: Patient's on NG tube seen and examined. Said she is still passing some flatus but no bowel movement yet. NGT clamped yesterday. On sips today Objective - Exam Narrative Exam: Constitutional: NG tube in place. Well-nourished well-developed. In no dis tress Head: Normocephalic atraumatic Eyes: Pupils are equal round and reactive to light Nose: No enlarged turbinates, no septal deviation. Mouth: Moist mucous membranes. Neck: Supple no thyromegaly. No bruit. No JVD Heart: Regular rate and rhythm, S1-S2 normal. No rubs murmurs or gallop Lungs: Clear to auscultation bilaterally. no rales or rhonchi Abdomen: Soft, nontender. Bowel sound are present. Extremities: No edema, no cyanosis, no clubbing. Neuro: Alert oriented Oriented x3. No focal sensory or motor deficit. Skin: No rashes or hyperpigmented spots Musculoskeletal system: No joint pain or swelling Hematological: No petechia or subcutanous hemorrhages. Immunological: No multiple septic spots on the skin Lymphatic: No generalized lymphadenopathy Psychiatry: Euthymic. Calm. - Constitutional Vitals: Vital Signs - 12hr 08/15/18 08/15/18 08/15/18 06:55 07:31 11:16 Temperature 98.7 F 98.7 F 97.7 F Pulse Rate 68 Respiratory 20 20 16 Rate Blood Pressure 162/79 162/82 Blood Pressure 162/79 [Right] O2 Sat by Pulse 100 Oximetry 08/15/18 08/15/18 11:56 15:00 Temperature 97.7 F 97.7 F Pulse Rate 64 66 Respiratory 16 18 Rate Blood Pressure Blood Pressure 162/82 143/82 [Right] O2 Sat by Pulse 97 96 Oximetry - Labs CBC & Chem 7: 08/15/18 04:09 08/15/18 04:09 Labs: Abnormal lab results 08/14/18 08/15/18 08/15/18 Range/Units 21:57 04:09 04:09 MCV 78 L (79-97) fl MCH 25 L (28-32) pg RDW 16.3 H (13.2-15.2) % [place] % (Auto) 8.4 H (0.0-7.3) % Seg Neutrophils % 72.3 H (40.0-70.0) % Carbon Dioxide 20 L (22-30) mmol/L Glucose 127 H (65-100) mg/dL POC Glucose 133 H (70-105) Total Protein 5.8 L D (6.3-8.2) g/dL Albumin 3.4 L (3.9-5) g/dL 08/15/18 08/15/18 Range/Units 05:44 11:19 MCV (79-97) fl MCH (28-32) pg RDW (13.2-15.2) % [place] % (Auto) (0.0-7.3) % Seg Neutrophils % (40.0-70.0) % Carbon Dioxide (22-30) mmol/L Glucose (65-100) mg/dL POC Glucose 154 H 232 H (70-105) Total Protein (6.3-8.2) g/dL Albumin (3.9-5) g/dL
[2018-08-16 05:50] LABS: Eosinophils # (Auto) 0.1 K/mm3 (0.0-0.4); Hematocrit 32.3 % (30.3-42.9); Hemoglobin 10.6 gm/dl (10.1-14.3); Lymphocytes # (Auto) 1.4 K/mm3 (1.2-5.4); Lymphocytes % (Auto) 30.5 % (13.4-35.0); Mean Corpuscular HGB Conc 33 % (30-34); Mean Corpuscular Volume 77 fl (79-97); Monocytes # (Auto) 0.5 K/mm3 (0.0-0.8); Monocytes % (Auto) 10.1 % (0.0-7.3); Platelet Count 282 K/mm3 (140-440); Red Blood Count 4.22 M/mm3 (3.65-5.03); Red Cell Distribution Width 16.2 % (13.2-15.2)
[2018-08-16 06:13] LABS: Alanine Aminotransferase 9 units/L (7-56); Albumin 3.6 g/dL (3.9-5); BUN/Creatinine Ratio 11; Blood Urea Nitrogen 8 mg/dL (7-17); Calcium 8.8 mg/dL (8.4-10.2); Hemolysis Index 1
[2018-08-16] MEDS: HumaLOG SUB-Q SCH ×2 (07:08→12:08)
[2018-08-16] MEDS: LOVENOX SUB-Q SCH (10:20)
[2018-08-16] MEDS: PEPCID IV SCH (10:20)
[2018-08-16] MEDS: SODIUM CHLORIDE FLUSH SYRINGE 10 ML IV SCH (10:29)
[2018-08-16 11:49] VITALS: BP 158/77
--- NOTE | 2018-08-16 12:22 | Discharge Summary ---
Providers - Providers Date of Admission: 08/12/18 22:30 Attending physician: LAVONNE JUDGE MD 08/12/18 20:24 Consult to Physician [CONS] Urgent Comment: Consulting Provider: SANDRO OAKES Physician Instructions: Reason For Exam: small bowel obstruction Primary care physician: PATRICIA LUCERO Hospitalization Condition: Fair Hospital course: 63F who pw abdominal pain, vomiting and elevated BP she was found to have SBO, she received NG tube and decompression, she improved, diet was advanced and she did well -BP meds were optimized, as well as meds for chronic conditions -hyperkalemia resolved with IVF, and TRACIE resolved pmh; htn, DM Diagnosis SBO Hyperkalemia SIRS TRACIE- vasomotor nephropathy Disposition: TO HOME OR SELFCARE Time spent for discharge: 33 mins Core Measure Documentation - Palliative Care Palliative Care/ Comfort Measures: Not Applicable - Core Measures Any of the following diagnoses?: none Exam - Constitutional Vitals: Temp Pulse Resp BP Pulse Ox 97.9 F 70 18 158/77 97 08/16/18 11:24 08/16/18 11:24 08/16/18 11:24 08/16/18 11:24 08/16/18 11:24 General appearance: Present: no acute distress, well-nourished - EENT Eyes: Present: PERRL ENT: hearing intact, clear oral mucosa - Neck Neck: Present: supple, normal ROM - Respiratory Respiratory effort: normal Respiratory: bilateral: CTA - Cardiovascular Heart Sounds: Present: S1 & S2. Absent: rub, click - Extremities Extremities: pulses symmetrical, No edema Peripheral Pulses: within normal limits - Abdominal General gastrointestinal: Present: soft, non-tender, non-distended, normal bowel sounds Female genitourinary: Present: normal - Integumentary Integumentary: Present: clear, warm, dry - Musculoskeletal Musculoskeletal: gait normal, strength equal bilaterally - Psychiatric Psychiatric: appropriate mood/affect, intact judgment & insight - Neurologic Neurologic: CNII-XII intact, moves all extremities Plan Follow up with: PATRICIA LUCERO MD [Primary Care Provider] - 3-5 Days
== END 2018-08-16 13:30 | disposition home or self-care (01) | DRG 388 ==
LOC: ED 16:20 → 3B-SURG 22:30
PROVIDERS: ADMIT Internal Medicine; ATTEND Internal Medicine
PROC: 0D9670Z Drainage of Stomach with Drainage Device, Via Natural or Artificial Opening (ICD-10-PCS; principal; 2018-08-12)
DX: K56.609 Unspecified intestinal obstruction, unspecified as to partial versus complete obstruction (principal); N17.0 Acute kidney failure with tubular necrosis; N39.0 Urinary tract infection, site not specified; R65.10 Systemic inflammatory response syndrome (SIRS) of non-infectious origin without acute organ dysfunction; E87.5 Hyperkalemia; E11.65 Type 2 diabetes mellitus with hyperglycemia; I10 Essential (primary) hypertension; E27.8 Other specified disorders of adrenal gland; N28.1 Cyst of kidney, acquired; N85.8 Other specified noninflammatory disorders of uterus; Z79.84 Long term (current) use of oral hypoglycemic drugs
CPT/HCPCS: 36415; 74018; 74019; 80048; 80053; 81001; 82962; 83690; 83735; 85025; G0378; J1650; J1815; J2270; J2405; J3010; J7030